=== PATIENT | male | born 1955 | race Caucasian/White ===

== ENCOUNTER → 2016-08-09 | Outpatient (CLI) | payer OTHER ==
[~2016-08-09] MED LIST: ASPIRIN PO; CELLCEPT PO; DIOVAN PO; HYDREA500 MG PO
[2016-08-09 12:19] LABS: URINE APPEARANCE CLEAR; URINE BILIRUBIN NEG (NEG); URINE BLOOD NEG (NEG); URINE COLOR YELLOW; URINE GLUCOSE NEG (NEG); URINE KETONE NEG (NEG); URINE LEUKOCYTE ESTERASE NEG (NEG); URINE NITRATE NEG (NEG); URINE PROTEIN NEG (NEG); URINE SPECIFIC GRAVITY 1.013 (1.003-1.035); URINE UROBILINOGEN 0.2 MG/DL (NEG)
[2016-08-09 12:25] LABS: URINE SOURCE CLEAN CATCH
[2016-08-09 13:30] LABS: BUN/CREATININE RATIO 19.37; CALCIUM SERUM 9.3 mg/dL (8.4-10.2); CREATININE SERUM 1.6 mg/dL (0.6-1.4); GLOM FILT RATE Estimated 46.6 mL/min (>60)
[2016-08-11 10:39] LABS: MYELOPEROXIDASE AB (PNL) <1.0 AI (<1.0)
== END | disposition home or self-care (01) ==
LOC: CLAB 12:00
PROVIDERS: Orthopaedic Surgery
DX: C18.9 Malignant neoplasm of colon, unspecified (principal)
CPT/HCPCS: 36415; 80048; 81003; 86021